=== PATIENT | female | born 1980 | race Caucasian/White ===

== ENCOUNTER 2021-01-23 15:43 | Emergency (ER) | payer SELFPAY ==
[~2021-01-23] VITALS: Ht 149.9 cm; Wt 70.0 kg
[2021-01-23 17:17] VITALS: BP 126/81
--- NOTE | 2021-01-23 18:00 | RAD ---
3 view left ankle and 3 view left foot HISTORY: Pain status post fall AP lateral oblique views 3 views left foot: The visualized osseous structures appear normal. 3 views left ankle: The visualized osseous structures appear normal. The tibiotalar relationship is normal. IMPRESSION: No acute findings. Electronically signed by: Lucien Alford III, MD (01/23/2021 5:58 PM) RADHA
--- NOTE | 2021-01-23 18:17 | PHYS DOC ---
Past Medical History Past Surgical History: No Surgical History General Adult EDM: Chief Complaint: ANKLE PROBLEM HPI: HPI: Patient is a 40 year old female who presents to the ED today complaining of 8 out of 10 left foot and left ankle pain, symptoms began a couple days ago after she twisted her left ankle and fell. Patient denies any loss of consciousness. She states she fell on concrete. Discussed the pain as throbbing and intermittent worse on weightbearing. Patient denies hitting her head on the ground when she fell. She is a poor historian. It takes a while to get information from her. Review of Systems: Review of Systems: Constitutional: Denies fever or chills. [] Musculoskeletal: Reports left foot and left ankle pain Integument: Denies rash. [] Neurologic: Denies headache, focal weakness or sensory changes. [] Psychiatric: Denies depression or anxiety. [] Heart Score: C/O Chest Pain: N/A Risk Factors: Risk Factors: DM, Current or recent (<one month) smoker, HTN, HLP, family history of CAD, obesity. Risk Scores: Score 0 - 3: 2.5% MACE over next 6 weeks - Discharge Home Score 4 - 6: 20.3% MACE over next 6 weeks - Admit for Clinical Observation Score 7 - 10: 72.7% MACE over next 6 weeks - Early Invasive Strategies Physical Exam: PE: Constitutional: Well developed, well nourished, no acute distress, non-toxic appearance. [] Skin: Warm, dry, no erythema, no rash. [] Back: No tenderness, no CVA tenderness. [] Extremities: Bruising noted on left lateral ankle as well as left lateral foot. Soft tissue swelling noted on the left lateral ankle and left lateral foot. No navicular bone tenderness or tenderness on the base of the fifth metatarsal of the left foot. Slight tenderness noted on the left lateral ankle. Full range of motion to the left foot ankle and toes. +2 left pedal pulse. Cap refill less than 2 seconds in left lower extremity. Neurologic: Alert and oriented X 3, normal motor function, normal sensory function, no focal deficits noted. [] Psychologic: Affect normal, judgement normal, mood normal. [] Current Patient Data: Labs: Laboratory Tests Test 01/23/21 16:58 POC Urine HCG, Qualitative Hcg negative (Negative) Vital Signs: Vital Signs Date Time Temp Pulse Resp B/P (MAP) Pulse Ox O2 Delivery O2 Flow Rate FiO2 01/23/21 17:17 97.5 90 16 126/81 (96) 97 Room Air 97.5 EKG: EKG: [] Radiology/Procedures: Radiology/Procedures: []PROCEDURE: FOOT LEFT 3V 3 view left ankle and 3 view left foot HISTORY: Pain status post fall AP lateral oblique views 3 views left foot: The visualized osseous structures appear normal. 3 views left ankle: The visualized osseous structures appear normal. The tibiotalar relationship is normal. IMPRESSION: No acute findings. Electronically signed by: Romario Alford III, MD (01/23/2021 5:58 PM) [facility] [place] DICTATED and SIGNED BY: ROMARIO ALFORD III, MD DATE: 01/23/21 [id number] 0 Course & Med Decision Making: Course & Med Decision Making Pertinent Labs and Imaging studies reviewed. (See chart for details) This a 40-year-old female patient presenting to the ED today with left knee pain abdominal pain that began a couple days ago after she fell. Left foot and left ankle x-rays interpreted by radiologist are negative for any acute findings. Paul bandage applied to the left foot and ankle by the ED RN, neurovascular exam done by me is normal. Ice elevation encouraged. Follow-up with orthopedic doctor in 1 week. OTC pain relievers. Dragon Disclaimer: Dragon Disclaimer: This electronic medical record was generated, in whole or in part, using a voice recognition dictation system. Departure Departure Impression: Primary Impression: Fall from standing Qualified Codes: W19.XXXA - Unspecified fall, initial encounter Additional Impressions: Sprain of left foot Qualified Codes: S93.602A - Unspecified sprain of left foot, initial encounter Left ankle sprain Qualified Codes: S93.402A - Sprain of unspecified ligament of left ankle, initial encounter Disposition: HOME / SELF CARE / HOMELESS Condition: STABLE Referrals: MARIO ARIZMENDI MD Follow-up in 1 week Patient Instructions: Ankle Sprain, [id number], Foot Sprain-Brief Additional Instructions: You were evaluated in the emergency room for left foot and left ankle pain, your left foot and left ankle x-rays are negative for any acute findings. Try to ice and elevate the affected areas. Take the prescribed medications as ordered. Follow-up with your own doctor in 1 week or the provided orthopedic doctor Scripts Diclofenac Potassium (DICLOFENAC POTASSIUM) 50 Mg Tablet 1 TAB PO BID, #60 TAB Prov: BENEDICTO KELLOGG APRN 01/23/21 Cyclobenzaprine Hcl (CYCLOBENZAPRINE HCL) 10 Mg Tablet 1 TAB PO TID, #30 TAB Prov: BENEDICTO KELLOGG APRN 01/23/21 BENEDICTO KELLOGG APRN Jan 23, 2021 18:17
[2021-01-23] MEDS ORDERED: CYCL10TA2 PO (18:18)
[2021-01-23] MEDS ORDERED: DICL50TA2 PO (18:18)
== END 2021-01-23 18:26 | disposition home or self-care (01) ==
LOC: ER 15:43
DX: S93.402A Sprain of unspecified ligament of left ankle, initial encounter (principal); S93.602A Unspecified sprain of left foot, initial encounter; W18.30XA Fall on same level, unspecified, initial encounter; Y93.89 Activity, other specified; Y92.89 Other specified places as the place of occurrence of the external cause; Y99.8 Other external cause status
CPT/HCPCS: 73610; 73630; 81025; 99284

== ENCOUNTER 2021-03-29 10:42 | Emergency (ER) | payer SELFPAY ==
[~2021-03-29] VITALS: Ht 149.9 cm; Wt 68.7 kg
[~2021-03-29 10:42] MED LIST: CYCL10TA19 PO; DICL50TA2 PO
[2021-03-29 10:50] VITALS: BP 166/94
--- NOTE | 2021-03-29 11:02 | PHYS DOC ---
Past Medical History Past Surgical History: No Surgical History (LEXIE ANDRES APRN) General Adult EDM: Chief Complaint: COUGH HPI: HPI: Patient is a 40-year-old female who presents to the emergency department for yellow nasal drainage and a productive cough that started 3 days ago. Patient also reports a subjective fever and mild shortness of breath. She reports that her boyfriend has the same symptoms but has not been seen for it. She has been taking Mucinex and Sudafed at home for her symptoms. Patient is also reporting a fishy vaginal odor with itching. Patient denies any chest pain, nausea, vomiting, recent travel, vaginal discharge, vaginal bleeding or vaginal pain. Patient is afebrile and her vital signs are stable. (LEXIE ANDRES APRN) Review of Systems: Review of Systems: Constitutional: See HPI HENT: See HPI Respiratory: See HPI Cardiovascular: See HPI GI: See HPI : See HPI (LEXIE ANDRES APRN) Heart Score: C/O Chest Pain: No Risk Factors: Risk Factors: DM, Current or recent (<one month) smoker, HTN, HLP, family history of CAD, obesity. Risk Scores: Score 0 - 3: 2.5% MACE over next 6 weeks - Discharge Home Score 4 - 6: 20.3% MACE over next 6 weeks - Admit for Clinical Observation Score 7 - 10: 72.7% MACE over next 6 weeks - Early Invasive Strategies (LEXIE ANDRES APRN) Physical Exam: PE: Constitutional: Well developed, well nourished, no acute distress, non-toxic appearance. [] HENT: Normocephalic, atraumatic, bilateral external ears normal, oropharynx moist, no oral exudates, nasal drainage noted. [] Eyes: PERRL, EOMI, conjunctiva normal, no discharge. [] Neck: Normal range of motion, no tenderness, supple, no stridor. [] Cardiovascular:Heart rate regular rhythm, no murmur [] Lungs & Thorax: Bilateral breath sounds clear to auscultation [] Abdomen: Bowel sounds normal, soft, no tenderness, no masses, no pulsatile masses. [] Skin: Warm, dry, no erythema, no rash. [] Back: Normal range of motion Extremities: No tenderness, no cyanosis, no clubbing, ROM intact, no edema. [] Neurologic: Alert and oriented X 3, normal motor function, normal sensory function, no focal deficits noted. [] Psychologic: Affect normal, judgement normal, mood normal. [] (LEXIE ANDRES APRN) Current Patient Data: Labs: Laboratory Tests Test 03/29/21 10:50 03/29/21 10:59 03/29/21 11:22 Urine Collection Type Void Urine Color Yellow Urine Clarity Clear Urine pH 6.0 Urine Specific [place] 1.025 Urine Protein Negative mg/dL Urine Glucose (UA) Negative mg/dL Urine Ketones (Stick) Negative mg/dL Urine Blood Negative Urine Nitrite Negative Urine Bilirubin Negative Urine Urobilinogen Dipstick 1.0 mg/dL Urine Leukocyte Esterase Negative Urine RBC Occ /HPF Urine WBC Rare /HPF Urine Squamous Epithelial Cells Many /LPF Urine Bacteria 0 /HPF Urine Mucus Mod /LPF Bedside Urine HCG, Qualitative Hcg negative Influenza Type A Antigen Negative Influenza Type B Antigen Negative Current Medications Medications (Trade) Dose Ordered Sig/Marcelo Route PRN Reason Start Time Stop Time Status Last Admin Dose Admin Ceftriaxone Sodium (Rocephin Im) 500 mg 1X ONCE IM 03/29/21 11:15 03/29/21 11:16 DC 03/29/21 11:21 Doxycycline Hyclate (Vibra-Tab) 100 mg 1X ONCE PO 03/29/21 11:15 03/29/21 11:16 DC 03/29/21 11:21 (LEXIE ANDRES APRN) EKG: EKG: [] (LEXIE ANDRES APRN) Radiology/Procedures: Radiology/Procedures: []PROCEDURE: PORTABLE CHEST 1V Exam Date: 03/29/2021 11:03 AM XR CHEST 1V Indication: Reason: soa, cough / Spl. Instructions: / History: . FINDINGS/ IMPRESSION: The cardiac silhouette and pulmonary vasculature are within normal limits. There is no focal consolidation, pleural effusion or pneumothorax. The visualized osseous structures are intact. Electronically signed by: Briseida Shields MD (03/29/2021 11:12 AM) [id number] DICTATED and SIGNED BY: BRISEIDA SHIELDS MD DATE: 03/29/21 [id number] (LEXIE ANDRES APRN) Course & Med Decision Making: Course & Med Decision Making Pertinent Labs and Imaging studies reviewed. (See chart for details) [] Patient presents to the emergency department for multiple complaints including nasal drainage and a yellow productive cough. She will be tested for influenza, COVID-19 and will have a chest x-ray. Patient is also reporting a fishy vaginal odor without any vaginal discharge. I discussed a pelvic exam versus swab self swab with patient and she elected to perform self swab. Patient will like to be prophylactically treated for gonorrhea and chlamydia. Given first dose in the ER and sent home with doxycycline. Patient will be notified of her COVID-19 results when they become available. Patient advised to self isolate until these become available. Rapid influenza test was negative. CXR showed no acute findings. Wet prep bacterial vaginosis, no yeast or Trichomonas seen. Treated with metronidazole. Patient was also tested for gonorrhea chlamydia and she'll be notified of those results via telephone immediately available in approximately 1 to 2 days. Patient advised to avoid sexual intercourse for 2 weeks. She was also advised to notify her sexual partners of her results if she is positive. I discussed with patient all findings and diagnostic testing as well as the need to follow-up with PCP for further evaluation and treatment or return to the ER if any new or worsening symptoms. Strict return precautions were also discussed at length. Patient voiced understanding and agreement with the plan. Patient is hemodynamically stable at the time of disposition.. (LEXIE ANDRES APRN) Course & Med Decision Making I was the Attending physician on the above date of service of this patient. This patient was evaluated, examined, treated, and dispositioned from the emergency department by the mid-level practitioner. Although I was working at the time , no assistance was requested. Electronically signed, Alex Smith DO (ALEX SMITH DO) Dianne Disclaimer: Dianne Disclaimer: This electronic medical record was generated, in whole or in part, using a voice recognition dictation system. (LEXIE ANDRES APRN) Departure Departure Impression: Primary Impression: Bacterial vaginosis Additional Impressions: Encounter for screening for infections with a predominantly sexual mode of transmission Person under investigation for COVID-19 Disposition: HOME / SELF CARE / HOMELESS Condition: GOOD Referrals: NO PCP (PCP) Patient Instructions: Bacterial Vaginosis, Cough, Adult Additional Instructions: You're seen in the emergency department for nasal drainage and a productive cough. Your rapid influenza test was negative. Your chest x-ray did not show any pneumonia. Your Covid test is pending at this time and you'll be notified of those results in approximately 2 days. Please self isolate until you receive these results. For your nasal congestion and drainage you should take Mucinex, you may also benefit from an intranasal steroid like Flonase. For your cough we suggest Delsym [id number]. Your urinalysis did not show any infection. Your swabs did show bacterial vaginosis which will be treated with metronidazole. Do not drink alcohol with this medication as it will cause s evere vomiting. You were tested for gonorrhea and chlamydia while in the emergency department. You'll be notified of these results when they become available in approximately 2 days. You were prophylactically treated for these while in the ER. You're being discharged with an antibiotic that you should start and finish completely. Please avoid sexual intercourse for 2 weeks. When you receive your gonorrhea and Chlamydia results please notify your sexual partners if you're positive for any results. If you are seeking any extensive STI testing such as herpes, hepatitis or HIV you'll need to follow-up with your health department. Please follow-up with your primary care provider tomorrow regarding your emergency department visit. Please return to the emergency department if you develop shortness of breath, chest pain, high fevers refractory to treatment, intractable nausea or vomiting, vaginal bleeding, vaginal pain, abdominal pain or any new or worsening concerns. Scripts Metronidazole (METRONIDAZOLE) 500 Mg Tablet 1 TAB PO BID for 7 Days, #14 TAB 0 Refills Prov: LEXIE ANDRES APRN 03/29/21 Doxycycline Hyclate (DOXYCYCLINE HYCLATE) 100 Mg Tablet 1 TAB PO BID for 7 Days, #14 TAB 0 Refills Prov: LEXIE ANDRES APRN 03/29/21 LEXIE ANDRES APRN Mar 29, 2021 11:02 ALEX SMITH DO Mar 29, 2021 15:58
[2021-03-29 11:05] LABS: BILIRUBIN,URINE NEGATIVE (NEG); CLARITY,URINE CLEAR; COLOR,URINE YELLOW; NITRITE,URINE NEGATIVE (NEG); PROTEIN,URINE NEGATIVE (NEG-TRACE)
--- NOTE | 2021-03-29 11:14 | RAD ---
Exam Date: 03/29/2021 11:03 AM XR CHEST 1V Indication: Reason: soa, cough / Spl. Instructions: / History: . FINDINGS/ IMPRESSION: The cardiac silhouette and pulmonary vasculature are within normal limits. There is no focal consolidation, pleural effusion or pneumothorax. The visualized osseous structures are intact. Electronically signed by: Sarabjit Shields MD (03/29/2021 11:12 AM) [id number]
[2021-03-29] MEDS ORDERED: DOXYCYCLINE HYCLATE 100 MG TABLET PO ONE (11:15)
[2021-03-29] MEDS ORDERED: cefTRIAXone IM 500 MG VIAL. IM ONE (11:15)
[2021-03-29 11:27] LABS: RBC,URINE OCC /HPF (0-2)
[2021-03-29 11:32] LABS: WBC,URINE RARE /HPF (0-4)
[2021-03-29 11:33] LABS: BACTERIA,URINE 0 /HPF (0-FEW)
[2021-03-29 11:51] LABS: INFLUENZA A PATIENT NEGATIVE (NEGATIVE); INFLUENZA B PATIENT NEGATIVE (NEGATIVE)
[2021-03-29] MEDS ORDERED: METR-34 PO (12:07)
[2021-03-29] MEDS ORDERED: DOXY100T PO (12:07)
--- NOTE | 2021-03-30 15:19 | NUR ---
IP: Attempted to contact pt concerning covid results. No answer, left a voicemail to return the call.
[2021-03-30 20:09] LABS: GC PROBE Negative (Negative)
--- NOTE | 2021-03-31 09:54 | NUR ---
attempted to call, mailbox was full. I called again and a woman stated " No one lives here with that name"
== END 2021-03-29 12:17 | disposition home or self-care (01) ==
LOC: ER 10:42
DX: N76.0 Acute vaginitis (principal); B96.89 Other specified bacterial agents as the cause of diseases classified elsewhere; Z20.822 Contact with and (suspected) exposure to COVID-19
CPT/HCPCS: 71045; 81001; 81025; 87491; 87591; 87804; 96372; 99284; J0696; Q0111; U0003; U0005

== ENCOUNTER 2021-06-18 20:36 | Emergency (ER) | payer SELFPAY ==
[~2021-06-18 20:36] MED LIST changes: +DOXY100T PO; +METR-34 PO
--- NOTE | 2021-06-18 23:17 | PHYS DOC ---
Past Medical History Past Surgical History: Other Additional Past Surgical Histo: Partial hyst Smoking Status: Current Every Day Smoker Alcohol Use: None General Adult EDM: Chief Complaint: EARACHE/EAR PAIN HPI: HPI: LEFT WITHOUT BEING SEEN Patient is a 40 year old [f__sex] who presents with [] Review of Systems: Review of Systems: LEFT WITHOUT BEING SEEN Heart Score: C/O Chest Pain: N/A Risk Factors: Risk Factors: DM, Current or recent (<one month) smoker, HTN, HLP, family history of CAD, obesity. Risk Scores: Score 0 - 3: 2.5% MACE over next 6 weeks - Discharge Home Score 4 - 6: 20.3% MACE over next 6 weeks - Admit for Clinical Observation Score 7 - 10: 72.7% MACE over next 6 weeks - Early Invasive Strategies Allergies: Allergies: Allergies Coded Allergies Type Severity Reaction Last Updated Verified No Known Drug Allergies 03/29/21 No Physical Exam: PE: LEFT WITHOUT BEING SEEN EKG: EKG: [] Radiology/Procedures: Radiology/Procedures: [] Course & Med Decision Making: Course & Med Decision Making LEFT WITHOUT BEING SEEN Dianne Disclaimer: Dianne Disclaimer: This electronic medical record was generated, in whole or in part, using a voice recognition dictation system. Departure Departure Disposition: 07 LEFT WITHOUT BEING SEEN Referrals: NO PCP (PCP) MADISON CHAO DO Jun 18, 2021 23:17
== END 2021-06-18 23:18 | disposition left against medical advice (07) ==
LOC: ER 20:36
DX: H92.02 Otalgia, left ear (principal); F17.200 Nicotine dependence, unspecified, uncomplicated; Z53.21 Procedure and treatment not carried out due to patient leaving prior to being seen by health care provider
CPT/HCPCS: 99281

== ENCOUNTER 2021-08-01 01:26 | Emergency (ER) | payer SELFPAY ==
[~2021-08-01] VITALS: Ht 149.9 cm; Wt 72.7 kg
--- NOTE | 2021-08-01 02:19 | PHYS DOC ---
Past Medical History Past Surgical History: No Surgical History Additional Past Surgical Histo: Partial hyst Smoking Status: Current Every Day Smoker Alcohol Use: Occasionally Adult General Chief Complaint Chief Complaint: MULTIPLE COMPLAINTS HPI HPI The patient is a 41-year-old female who presents for medical screening about 3 hours after using PCP, methamphetamines and alcohol. Patient states she was laying in bed and could not get to sleep and felt like there was "electricity in my body." She reports that her body has not felt quite right for about a day. She clarifies that she does not have any pain anywhere. She specifically denies fevers, nausea or vomiting, upper respiratory congestion/rhinorrhea, cough, sore throat, shortness of breath or chest pain of any kind, abdominal pain of any kind, flank pain, midline back pain, dysuria, hematuria, polyuria or oliguria, changes in bowel habits, unusual vaginal discharge or bleeding, pain or swelling to arms or legs. Patient is alert, pleasantly and appropriately interactive and in no acute distress, ambulatory with a narrow, steady, non-ataxic gait to ED bed 22. Vital signs are appropriate here. Review of Systems Review of Systems A 12 point review of systems was completed and was negative except where noted in HPI above. Allergies Allergies Allergies Coded Allergies Type Severity Reaction Last Updated Verified No Known Drug Allergies 03/29/21 No Physical Exam Physical Exam 41-year-old female appearing nontoxic and in no acute distress. Head is normocephalic and atraumatic. Neck is supple and nontender. Oropharynx is moist. Lungs are clear to auscultation at all stations. There is a normal S1 and S2 without rubs or gallops and capillary refill is appropriate, less than 2 seconds globally. Abdomen is soft, nontender and nondistended. Skin is warm and dry without cyanosis, clubbing or edema. Psychiatrically, the patient demonstrates appropriate mood and affect and is alert. Neurologically, patient moves all extremities equally, is alert and oriented x4 no lateralizing deficits are seen. Evaluation of the extremities reveals BUEs and BLEs neurovascularly intact distally strength 5-5, sensation intact light touch in all nerve distributions, radial, DP and PT pulses 2+ and equal bilaterally, capillary refill less than 2 seconds, hands and feet warm and well-perfused. No dependent peripheral edema distally. No calf tenderness or swelling bilaterally. Alix's test is negative bilaterally. Current Patient Data Vital Signs Vital Signs Date Time Temp Pulse Resp B/P (MAP) Pulse Ox O2 Delivery O2 Flow Rate FiO2 08/01/21 01:31 98.2 98 18 166/97 (120) 98 Room Air 98.2 Lab Values Laboratory Tests Test 08/01/21 02:25 White Blood Count 10.9 x10^3/uL (4.0-11.0) Red Blood Count 4.99 x10^6/uL (3.50-5.40) Hemoglobin 14.8 g/dL (12.0-15.5) Hematocrit 43.4 % (36.0-47.0) Mean Corpuscular Volume 87 fL (79-100) Mean Corpuscular Hemoglobin 30 pg (25-35) Mean Corpuscular Hemoglobin Concent 34 g/dL (31-37) Red Cell Distribution Width 12.9 % (11.5-14.5) Platelet Count 254 x10^3/uL (140-400) Neutrophils (%) (Auto) 69 % (31-73) Lymphocytes (%) (Auto) 25 % (24-48) Monocytes (%) (Auto) 5 % (0-9) Eosinophils (%) (Auto) 1 % (0-3) Basophils (%) (Auto) 1 % (0-3) Neutrophils # (Auto) 7.6 x10^3/uL (1.8-7.7) Lymphocytes # (Auto) 2.7 x10^3/uL (1.0-4.8) Monocytes # (Auto) 0.5 x10^3/uL (0.0-1.1) Eosinophils # (Auto) 0.1 x10^3/uL (0.0-0.7) Basophils # (Auto) 0.1 x10^3/uL (0.0-0.2) Sodium Level 138 mmol/L (136-145) Potassium Level 3.1 mmol/L (3.5-5.1) L Chloride Level 104 mmol/L (98-107) Carbon Dioxide Level 23 mmol/L (21-32) Anion Gap 11 (6-14) Blood Urea Nitrogen 17 mg/dL (7-20) Creatinine 0.8 mg/dL (0.6-1.0) Estimated GFR (Cockcroft-Gault) 79.0 BUN/Creatinine Ratio 21 (6-20) H Glucose Level 135 mg/dL (70-99) H Calcium Level 8.9 mg/dL (8.5-10.1) Total Bilirubin 0.4 mg/dL (0.2-1.0) Aspartate Amino Transferase (AST) 18 U/L (15-37) Alanine Aminotransferase (ALT) 27 U/L (14-59) Alkaline Phosphatase 79 U/L (46-116) Total Protein 7.3 g/dL (6.4-8.2) Albumin 3.3 g/dL (3.4-5.0) L Albumin/Globulin Ratio 0.8 (1.0-1.7) L Serum Test, Qualitative Negative (NEG) Salicylates Level 3.6 mg/dL (2.8-20.0) Salicylate Last Dose Date Salicylate Last Dose Time Acetaminophen Level < 2 mcg/ml (10-30) L Acetaminophen Last Dose Date Acetaminophen Last Dose Time Ethyl Alcohol Level < 10 mg/dL (0-10) Laboratory Tests 08/01/21 02:25 Laboratory Tests 08/01/21 02:25 EKG EKG [] Radiology/Procedures Radiology/Procedures [] Course & Med Decision Making Course & Med Decision Making Well-appearing 41-year-old female with reassuring vital signs and unremarkable clinical examination presents for evaluation of multiple very vague complaints. Used multiple illegal drugs about 3 hours prior to arrival and suspect a degree of polysubstance intoxication/abuse accounts for patient's symptoms, although she is not significantly clinically intoxicated on my evaluation. Will check basic and toxicology labs as noted and will then reevaluate. If work-up is reassuring, anticipate discharge home to follow-up closely with primary care. Patient understands and agrees. 0400: Labs unremarkable aside from mildly low serum potassium. Patient ambulatory here in the emergency department, verbalizes that she is ready to leave. Alert and oriented x4, not clinically intoxicated, steady gait. No evidence of emergency medical condition has been identified. Does not want to wait for discharge paperwork or to have her potassium level addressed. Did not sign discharge paperwork. Dragon Disclaimer Dragon Disclaimer This electronic medical record was generated, in whole or in part, using a voice recognition dictation system. Departure Departure Impression: Primary Impression: Polysubstance abuse Disposition: HOME / SELF CARE / HOMELESS Condition: STABLE Patient Instructions: Polysubstance Abuse Additional Instructions: Follow-up very closely with your primary care doctor in the office in the next 2 to 4 days for reevaluation of your symptoms and a discussion of next best steps in care. Drink plenty of fluids and get plenty of rest. Do not use illegal drugs to reduce serious risks to your health. Return to the emergency department right away for worsening symptoms of any kind or with any other new symptoms of concern. VIOLETA KOCH MD Aug 01, 2021 02:19
[2021-08-01 02:32] LABS: BASO # 0.1 x10^3/uL (0.0-0.2); BASO % 1 % (0-3); EOS # 0.1 x10^3/uL (0.0-0.7); EOS % 1 % (0-3); HEMATOCRIT 43.4 % (36.0-47.0); HEMOGLOBIN 14.8 g/dL (12.0-15.5); LYMPH # 2.7 x10^3/uL (1.0-4.8); LYMPH % 25 % (24-48); MEAN CORPUSCULAR HEMOGLOBIN 30 pg (25-35); MEAN CORPUSCULAR HGB CONC 34 g/dL (31-37); MEAN CORPUSCULAR VOLUME 87 fL (79-100); MONO # 0.5 x10^3/uL (0.0-1.1); MONO % 5 % (0-9); NEUT # 7.6 x10^3/uL (1.8-7.7); NEUT % 69 % (31-73); PLATELET COUNT 254 x10^3/uL (140-400); RED BLOOD COUNT 4.99 x10^6/uL (3.50-5.40); RED CELL DISTRIBUTION WIDTH 12.9 % (11.5-14.5); WHITE BLOOD COUNT 10.9 x10^3/uL (4.0-11.0)
[2021-08-01 02:43] LABS: CALCIUM 8.9 mg/dL (8.5-10.1); CREATININE 0.8 mg/dL (0.6-1.0); POTASSIUM 3.1 mmol/L (3.5-5.1)
[2021-08-01 02:48] LABS: PREG TEST PT QUAL NEGATIVE (NEG)
[2021-08-01 02:49] LABS: ACETAMIN < 2 mcg/ml (10-30); ALBUMIN 3.3 g/dL (3.4-5.0); ALBUMIN/GLOBULIN RATIO 0.8 (1.0-1.7); SALIC 3.6 mg/dL (2.8-20.0); TOTAL BILIRUBIN 0.4 mg/dL (0.2-1.0); TOTAL PROTEIN 7.3 g/dL (6.4-8.2)
[2021-08-01 02:50] LABS: ETHANOL < 10 mg/dL (0-10)
[2021-08-01 03:25] VITALS: BP 137/70
== END 2021-08-01 04:20 | disposition home or self-care (01) ==
LOC: ER 01:26
DX: F19.10 Other psychoactive substance abuse, uncomplicated (principal); F17.200 Nicotine dependence, unspecified, uncomplicated
CPT/HCPCS: 36415; 80053; 80329; 84703; 85025; 99285; G0480

== ENCOUNTER → 2021-08-26 | Emergency (ER) | payer SELFPAY ==
[~2021-08-26] VITALS: Ht 149.9 cm; Wt 68.0 kg
[~2021-08-26] MED LIST changes: +DOXY100C3 PO; +cefTRIAXone IM 500 MG VIAL. IM ONE
[2021-08-26 19:14] VITALS: BP 175/76
--- NOTE | 2021-08-26 19:55 | PHYS DOC ---
Past Medical History Past Surgical History: No Surgical History Additional Past Surgical Histo: Partial hyst Smoking Status: Current Every Day Smoker Alcohol Use: Occasionally General Adult EDM: Chief Complaint: FEMALE UROGENTIAL PROBLEMS HPI: HPI: Patient is a 41 year old female who presents with here with foul-smelling urine. She is also wanting STD check. Patient is also asking for a full STD check including hepatitis. Patient is told that we do not do hepatitis panels or HIV panels unless it is warranted in the emergency room. Patient states that she had a Pap smear done at [facility] but she never knew the results that she is asking me to get those results for her. Patient is told she would have to call [facility]'s information release to get her results. Patient states to me that she needs to " call got to talk to him about this". Patient denies vaginal discharge, abdominal pain, nausea, vomiting, diarrhea, vaginal pain, vaginal sores, chest pain, shortness of breath, fever, back pain. Review of Systems: Review of Systems: Constitutional: Denies fever or chills. [] Eyes: Denies change in visual acuity. [] HENT: Denies nasal congestion or sore throat. [] Respiratory: Denies cough or shortness of breath. [] Cardiovascular: Denies chest pain or edema. [] GI: Denies abdominal pain, nausea, vomiting, bloody stools or diarrhea. [] : Denies dysuria. +Foul smelling urine. +concern for STD[] Musculoskeletal: Denies back pain or joint pain. [] Integument: Denies rash. [] Neurologic: Denies headache, focal weakness or sensory changes. [] Endocrine: Denies polyuria or polydipsia. [] Lymphatic: Denies swollen glands. [] Psychiatric: Denies depression or anxiety. [] Heart Score: C/O Chest Pain: No Allergies: Allergies: Allergies Coded Allergies Type Severity Reaction Last Updated Verified No Known Drug Allergies 03/29/21 No Physical Exam: PE: Constitutional: Well developed, well nourished, no acute distress, non-toxic appearance. [] HENT: Normocephalic, atraumatic, bilateral external ears normal, oropharynx moist, no oral exudates, nose normal. [] Eyes: PERRLA, EOMI, conjunctiva normal, no discharge. [] Neck: Normal range of motion, no tenderness, supple, no stridor. [] Cardiovascular:Heart rate regular rhythm, no murmur [] Lungs & Thorax: Bilateral breath sounds clear to auscultation [] Abdomen: Bowel sounds normal, soft, no tenderness, no masses, no pulsatile masses. [] Skin: Warm, dry, no erythema, no rash. [] Back: No tenderness, no CVA tenderness. [] Extremities: No tenderness, no cyanosis, no clubbing, ROM intact, no edema. [] Neurologic: Alert and oriented X 3, normal motor function, normal sensory function, no focal deficits noted. [] Psychologic: Affect normal, judgement normal, mood normal. [] Normal Physical Exam Current Patient Data: Vital Signs: Vital Signs Date Time Temp Pulse Resp B/P (MAP) Pulse Ox O2 Delivery O2 Flow Rate FiO2 08/26/21 19:14 98.4 101 16 175/76 (109) 97 Room Air 98.4 EKG: EKG: [] Radiology/Procedures: Radiology/Procedures: [] Course & Med Decision Making: Course & Med Decision Making Pertinent Labs and Imaging studies reviewed. (See chart for details) See HPI. Alert and oriented x4. Ambulatory steady gait. Speaks in full clear sentences. No CVA tenderness. Abdomen is soft and nontender. Skin pink warm and dry. Patient is self swabbing for chlamydia, wet prep and gonorrhea. Urinalysis does not show infection for any bacteria or leukocytes. Patient states she does not have any vaginal discharge. Wet prep shows bacterial vaginosis. [] Dragon Disclaimer: Dragon Disclaimer: This electronic medical record was generated, in whole or in part, using a voice recognition dictation system. Departure Departure Impression: Primary Impression: Bacterial vaginosis Additional Impression: Concern about STD in female without diagnosis Disposition: HOME / SELF CARE / HOMELESS Condition: STABLE Referrals: GILA DURAN MD Patient Instructions: Bacterial Vaginosis, Sexually Transmitted Disease Additional Instructions: Follow-up with with a cost estimator as soon as possible. Drink plenty of fluids. Take medication as prescribed and with food. Do not drink alcohol with these medications. Scripts Doxycycline Hyclate (DOXYCYCLINE HYCLATE) 100 Mg Capsule 1 CAP PO BID, #14 CAP Prov: CLOLEEN KOROMA [employer] 08/26/21 Metronidazole (METRONIDAZOLE) 500 Mg Tablet 1 TAB PO BID for 7 Days, #14 TAB 0 Refills Prov: COLLEEN KOROMA APRN 08/26/21 COLLEEN KOROMA APRN August 26, 2021 19:55
[2021-08-26 20:39] LABS: AMORPHOUS SEDIMENT,UR PRESENT /HPF; BACTERIA,URINE 0 /HPF (0-FEW); RBC,URINE 0 /HPF (0-2); WBC,URINE 0 /HPF (0-4)
[2021-08-29 16:11] LABS: GC PROBE Negative (Negative)
== END | disposition home or self-care (01) ==
LOC: ER 19:01
DX: N76.0 Acute vaginitis (principal); B96.89 Other specified bacterial agents as the cause of diseases classified elsewhere; Z20.2 Contact with and (suspected) exposure to infections with a predominantly sexual mode of transmission; F17.200 Nicotine dependence, unspecified, uncomplicated
CPT/HCPCS: 81001; 81025; 87491; 87591; 96372; 99283; J0696; Q0111